=== PATIENT | male | born 1975 | race Caucasian/White ===

== ENCOUNTER 2018-07-26 18:11 | Emergency (ER) | payer OTHER ==
[~2018-07-26] VITALS: Ht 180.3 cm; Wt 99.3 kg
[~2018-07-26 18:11] MED LIST: ACYCLOVIR 800800 M1; AMOXICILLIN 50500 M1; MECLIZINE HCL25 M1 PO; NOHOMEMEDICATIONS; PHENERGAN 25 MG25 M1 PO; SERTRALINE HCL100 MG PO; TAMSULOSIN HCL0.4 M1 PER TUBE; VICODIN; VICODIN 5-5001 EACH PO; ZOFRAN 4 MG ORAL4 M1 DIS
[2018-07-26 18:52] LABS: ABSOLUTE BASOPHILS 0.1 thou/uL (0.0-0.2); ABSOLUTE EOSINOPHILS 0.1 thou/uL (0.0-0.7); ABSOLUTE MONOCYTES 0.4 thou/uL (0.0-1.2); ABSOLUTE NEUTROPHILS 3.8 thou/uL (1.6-8.1); EOSINOPHILS 1.5 %; HEMATOCRIT 44.8 % (42.0-52.0); HEMOGLOBIN 15.4 gm/dL (14.0-18.0); LYMPHOCYTES 19.5 %; MCH 32.7 pg (26.0-34.0); MCHC 34.3 g/dL (28.0-37.0); MCV 95.2 fL (80.0-100.0); MONOCYTES 7.9 %; MPV 9.1 fl. (7.2-11.1); NUCLEATED RBCS 0 /100WBC; PLATELET COUNT* 220 thou/uL (150-400); POLYS 70.1 %; RDW-CV 12.8 % (10.5-14.5); WBC 5.4 thou/uL (4.0-11.0)
[2018-07-26 19:00] LABS: CALCIUM 9.1 mg/dL (8.5-10.1); CREATININE 1.2 mg/dL (0.6-1.3); POTASSIUM 3.4 mmol/L (3.5-5.1)
[2018-07-26 19:02] LABS: APTT 27.1 Seconds (25.0-31.3); INR 1.1; PROTIME 10.8 Seconds (9.20-11.50)
[2018-07-26 19:05] LABS: ALBUMIN 4.1 g/dL (3.4-5.0); TOTAL BILIRUBIN 0.6 mg/dL (<0.1-1.0); TOTAL PROTEIN 7.3 g/dL (6.4-8.2)
[2018-07-26] MEDS ORDERED: ZOFRAN ODT4 MG PO (21:17)
[2018-07-26] MEDS ORDERED: TESSALON PERLE100 MG PO (21:17)
[2018-07-26 22:16] VITALS: BP 106/65
--- NOTE | 2018-07-27 10:19 | EKG ---
[place] [address] ELECTROCARDIOGRAM REPORT Name: KOFI MCNULTY Room: [facility].#: [id number] Admission: 07/26/18 Attend Phys: Discharge: 07/26/18 Date of : 73 Report #: [id number] THIS REPORT FOR: //name// [facility] ED Test Date: 2018-07-26 Test Time: 18:17:17 Pat Name: KOFI MCNULTY Department: Room: Gender: Marketing Recruiter: Reed DE PAZ : 1975 Requested By: Baron Power Order Number: [id number] MD: Chris Calderon Measurements Intervals [place] Rate: 73 P: 28 NM: 130 QRS: 46 QRSD: 96 T: 35 QT: 359 QTc: 396 Interpretive Statements Sinus rhythm ST elev, probable normal early repol pattern Baseline wander in lead(s) V1 Compared to ECG 12/21/2010 03:52:20 no change Electronically Signed On 07-27-2018 10:19:10 [employer] by Chris Calderon [email or web address] <ELECTRONICALLY SIGNED> By: Chris Calderon MD, [facility] 07/27/18 1019 16 16 Chris Calderon MD, [facility] /EPI
== END 2018-07-26 21:30 | disposition home or self-care (01) ==
LOC: M.ERS 18:11
PROVIDERS: Physician Assistant
DX: R55 Syncope and collapse (principal); K21.9 Gastro-esophageal reflux disease without esophagitis; R11.2 Nausea with vomiting, unspecified; Z90.49 Acquired absence of other specified parts of digestive tract